=== PATIENT | male | born 1995 | race Caucasian/White ===

== ENCOUNTER 2024-03-31 11:03 | Emergency (ER) | payer MEDICAID ==
[~2024-03-31] VITALS: Ht 180.3 cm; Wt 78.0 kg
[2024-03-31 11:07] VITALS: BP_SYST 137; PULSE 61; RESP 18; TEMP 98.1; O2SAT 98
[2024-03-31] MEDS: KETOROLAC TROMETHAMINE 30 MG VIAL IVP ONE (11:52)
[2024-03-31] MEDS: LIDOCAINE PATCH 5% 1 EA TP ONE (11:52)
[2024-03-31] MEDS: METHOCARBAMOL 1000 MG/10 ML VIAL IVP ONE (11:54)
[2024-03-31] MEDS: MORPHINE 4 MG INJ. 4 MG/ML VIAL IVP ONE (13:17)
[2024-03-31] MEDS: KETAMINE HCL IN 0.9 % NACL 50 MG/5 ML SYRINGE IVP ONE (15:01)
[2024-03-31] MEDS ORDERED: METH-634 PO (15:35)
[2024-03-31] MEDS ORDERED: HYDR-3917 PO (15:35)
[2024-03-31 16:00] VITALS: BP_SYST 143; PULSE 63; RESP 18; TEMP 97.4; O2SAT 98
== END 2024-03-31 16:00 | disposition home or self-care (01) ==
LOC: SED 11:03
DX: G89.29 Other chronic pain (principal); M54.50 Low back pain, unspecified; R20.2 Paresthesia of skin; Z79.899 Other long term (current) drug therapy
CPT/HCPCS: 99284; 96374; 96375; J1885; J2270; J2800

== ENCOUNTER 2024-04-09 18:25 | Emergency (ER) | payer MEDICAID ==
[~2024-04-09] VITALS: Ht 182.9 cm; Wt 78.0 kg
[~2024-04-09 18:25] MED LIST: HYDR-3917 PO; METH-634 PO
[2024-04-09 18:41] VITALS: BP_SYST 140; PULSE 84; RESP 18; TEMP 99; O2SAT 98
[2024-04-09] MEDS ORDERED: HYDR-3927 PO (19:06)
[2024-04-09] MEDS ORDERED: SOM350 PO (19:06)
[2024-04-09 19:34] VITALS: BP_SYST 142; PULSE 72; RESP 17; TEMP 98.2; O2SAT 100
== END 2024-04-09 19:34 | disposition home or self-care (01) ==
LOC: SED 18:25
DX: M54.50 Low back pain, unspecified (principal); Z79.899 Other long term (current) drug therapy
CPT/HCPCS: 99283

== ENCOUNTER 2024-04-16 14:28 | Emergency (ER) | payer MEDICAID ==
[~2024-04-16] VITALS: Ht 180.3 cm; Wt 78.0 kg
[~2024-04-16 14:28] MED LIST changes: +HYDR-3927 PO; +SOM350 PO
[2024-04-16 14:58] VITALS: BP_SYST 117; PULSE 91; RESP 18; TEMP 98.3; O2SAT 97
[2024-04-16] MEDS ORDERED: NABU-140 PO (16:51)
[2024-04-16 18:02] VITALS: BP_SYST 117; PULSE 91; RESP 18; TEMP 98.3; O2SAT 97
== END 2024-04-16 18:02 | disposition home or self-care (01) ==
LOC: SED 14:28
DX: G89.29 Other chronic pain (principal); M54.50 Low back pain, unspecified
CPT/HCPCS: 99283